=== PATIENT | male | born 1950 | race Caucasian/White ===

== ENCOUNTER 2019-04-05 09:06 | Emergency (ER) | payer MEDICARE, OTHER ==
[~2019-04-05] VITALS: Ht 185.4 cm; Wt 75.0 kg
[~2019-04-05 09:06] MED LIST: AMIO200T4 PO; ATOR40TA68 PO; CEPH-443 PO; DIGO250T PO; DILT120C77 PO; DOCU-144 PO; FINA5TAB4 PO; HYDR-3498 PO; METO-429 PO; NAPR-985 PO; PHEN-538 PO; RIVA20TA5 PO; TOLT4CAP13 PO; UDMOM PO; ZOLP5TAB PO
[2019-04-05 09:07] VITALS: BP 163/84; PULSE 70; RESP 18; Ht 185.4 cm; Wt 75.0 kg
[2019-04-05] MEDS ORDERED: KETOROLAC 15 MG INJ IM STA (10:05)
--- NOTE | 2019-04-05 10:13 | ERD ---
ER Documentation Chief Complaint Chief Complaint dysuria x 2 weeks, uses self catheter HPI Patient is a 68 years old male with past medical history of prostate cancer currently using a catheter presenting to the clinic with dysuria and urinary frequency and X 2 weeks. Patient reports history of UTI in the past which was treated with Keflex 4 times daily for 10 days. Patient is requesting Keflex and treatment for his pain. Patient denies fever, chills, night sweats, abdominal pain, flank pain, back pain. Patient reports history of allergy to ciprofloxacin and denies penicillin allergy. ROS All systems reviewed and are negative except as per history of present illness. Medications Home Meds Active Scripts Phenazopyridine Hcl* (Pyridium*) 200 Mg Tab, 200 MG PO TID PRN for URINARY PAIN, #6 TAB Prov:SANJEEV BAUTISTA PA-C 04/05/19 Cephalexin* (Keflex*) 500 Mg Capsule, 500 MG PO QID for 10 Days, #40 CAP Prov:SANJEEV BAUTISTA PA-C 04/05/19 Naproxen* (Naprosyn*) 500 Mg Tablet, 500 MG PO BID PRN for PAIN AND/OR INFLAMMATION, #30 TAB Prov:BO HUIZAR MD 09/01/16 Metoprolol Tartrate* (Lopressor*) 50 Mg Tab, 50 MG PO TID for 30 Days, TAB Prov:PALAK SAHU NP 07/29/16 Rivaroxaban* (Xarelto*) 20 Mg Tablet, 20 MG PO WITH DINNER, #30 TAB Prov:TORREY ELLIOTT MD 07/11/16 Diltiazem Hcl* (Cardizem CD*) 120 Mg Cap.sr.24h, 180 MG PO BID for 30 Days, #60 Prov:TORREY ELLIOTT MD 07/11/16 Digoxin* (Digitek*) 250 Mcg Tablet, 0.125 MG PO DAILY@13 for 30 Days, #30 TAB Prov:TORREY ELLIOTT MD 07/11/16 Amiodarone Hcl* (Amiodarone Hcl*) 200 Mg Tablet, 200 MG PO BID for 30 Days, #60 TAB Prov:TORREY ELLIOTT MD 07/11/16 Atorvastatin* (Atorvastatin*) 40 Mg Tablet, 40 MG PO HS for 30 Days, #30 TAB Prov:TORREY ELLIOTT MD 07/11/16 Tolterodine Tartrate* (Tolterodine Tartrate* ER) 4 Mg Cap.er.24h, 4 MG PO DAILY for 30 Days, CAP Prov:SUMMERS,ALIX V. [employer] COUNSELOR 03/21/16 Zolpidem Tartrate (Ambien Gary) 5 Mg Tablet, 5 MG PO QHS PRN for INSOMNIA for 30 Days, TAB Prov:SUMMERS,ALIX V. [employer]ERAL COUNSELOR 03/17/16 Docusate Sodium* (Colace*) 100 Mg Capsule, 100 MG PO Q12H PRN for CONSTIPATION for 30 Days, CAP Prov:SUMMERS,ALIX V. [employer]ERAL COUNSELOR 03/17/16 Magnesium Hydroxide* (Burkett' MOM*) 30 Ml Susp, 30 ML PO DAILY PRN for CONSTIPATION for 30 Days Prov:SUMMERS,ALIX V. [employer]ERAL COUNSELOR 03/17/16 Hydrocodone Bit/Acetaminophen (Anexsia 5-325 Mg Tablet) 1 Tab Tablet, 1 TAB PO Q6H PRN for PAIN LEVEL 4-6 for 30 Days, TAB Prov:SUMMERS,ALIX V. [employer]ERAL COUNSELOR 03/17/16 Finasteride* (Finasteride*) 5 Mg Tablet, 5 MG PO DAILY for 30 Days, TAB Prov:SUMMERS,ALIX V. [employer]ERAL COUNSELOR 03/17/16 Allergies Allergies: Coded Allergies: ciprofloxacin (Verified Allergy, Severe, hives, 04/05/19) Penicillins (Verified Allergy, Mild, 08/31/16) PMhx/Soc History of Surgery: Yes (LT INGUINAL HERNIA REPAIR, TURP, COLON ) Anesthesia Reaction: No Hx Neurological Disorder: No Hx Respiratory Disorders: No Hx Cardiac Disorders: Yes (A-FIB) Hx Psychiatric Problems: No Hx Miscellaneous Medical Probl: Yes (PROSTATE CA ) Hx Alcohol Use: Yes Hx Substance Use: Yes Hx Tobacco Use: No FmHx Family History: No diabetes, No coronary disease, No other Physical Exam Vitals Vital Signs Date Temp Pulse Resp B/P (MAP) Pulse Ox O2 O2 Flow FiO2 Time Delivery Rate 04/05/19 96.6 70 18 163/84 100 09:07 (110) Physical Exam Const: No acute distress Head: Atraumatic Resp: Clear to auscultation bilaterally Cardio: Regular rate and rhythm, no murmurs Skin: No petechiae or rashes Back: No midline or flank tenderness. Negative CVAT. Psych: Normal Mood and Affect Results 24 hrs Laboratory Tests Test 04/05/19 10:26 Urine Color AZEB Urine Clarity CLOUDY Urine pH 5.0 Urine Specific Ophelia 1.021 Urine Ketones NEGATIVE mg/dL Urine Nitrite POSITIVE mg/dL Urine Bilirubin NEGATIVE mg/dL Urine Urobilinogen NEGATIVE mg/dL Urine Leukocyte Esterase 3+ Carol/ul Urine Microscopic RBC 36 /HPF Urine Microscopic WBC > 182 /HPF Urine Mucus FEW /HPF Urine Hemoglobin 3+ mg/dL Urine Glucose NEGATIVE mg/dL Urine Total Protein 1+ mg/dl Current Medications Medications Dose Sig/Citlali Start Time Status Last (Trade) Ordered Route PRN Stop Time Admin Dose Reason Admin Ceftriaxone 1 gm ONCE ONCE 04/05/19 DC 04/05/19 Sodium IM 10:30 10:20 (Rocephin) 04/05/19 10:31 200 mg ONCE ONCE 04/05/19 DC 04/05/19 Phenazopyridi PO 10:30 10:19 ne HCl 04/05/19 10:31 (Pyridium) Ketorolac 15 mg ONCE STAT 04/05/19 DC Tromethamine IM 10:05 (Toradol) 04/05/19 10:10 Lidocaine 20 ml ONCE ONCE 04/05/19 DC 04/05/19 (Xylocaine SC 10:30 10:20 1% (Mdv) 20 04/05/19 10:31 ml) Procedures/MDM Patient was seen and evaluated for dysuria with indwelling catheter. Urinalysis revealed nitrates, leukocyte esterase, RBC, WBC, hemoglobin, mucus which is most likely UTI. Patient was given Rocephin 1 g IM, Pyridium 200 mg p.o. in ED. patient denied Toradol. low suspicion of pyelonephritis, hydronephrosis, sepsis due to stable vital signs. No further work-up required for today's visit. Patient is stable and ready for discharge. Patient will be discharged with Keflex 4 times daily X 10 days as per patient request, Pyridium 200mg. Departure Diagnosis: Primary Impression: Dysuria Additional Impression: UTI (urinary tract infection) Urinary tract infection type: catheter-associated UTI Indwelling urinary catheter type: indwelling urethral catheter Encounter type: initial encounter Qualified Codes: T83.511A - Infection and inflammatory reaction due to indwelling urethral catheter, initial encounter; N39.0 - Urinary tract infection, site not specified Condition: Stable Patient Instructions: Understanding Urinary Tract Infections (UTIs) Referrals: [facility] Additional Instructions: Patient advised to return to the ED immediately for new or worsening symptoms. Patient advised to follow up with primary care provider in the next 24-48 hours. Patient verbalized understanding and agrees with treatment plan and course of action. If patient has no primary care they may follow up with [facility] + [facility] [address] [place] [id number] or [facility] [id number] [place] [id number] or [facility] [address] [place] [address] SANJEEV BAUTISTA PA-C Apr 05, 2019 10:13
[2019-04-05] MEDS ORDERED: PHENAZOPYRIDINE 100 MG TAB PO ONE (10:30)
[2019-04-05] MEDS ORDERED: CEFTRIAXONE 1 GM INJ IM ONE (10:30)
[2019-04-05] MEDS ORDERED: LIDOCAINE 1% (MDV) 20 ML INJ SC ONE (10:30)
== END 2019-04-05 11:15 | disposition home or self-care (01) ==
LOC: FTE 09:06
DX: T83.511A Infection and inflammatory reaction due to indwelling urethral catheter, initial encounter (principal); N39.0 Urinary tract infection, site not specified; Y73.2 Prosthetic and other implants, materials and accessory gastroenterology and urology devices associated with adverse incidents; Z85.46 Personal history of malignant neoplasm of prostate
CPT/HCPCS: 81001; 87086; 96372; 99284; J0696; J1885